=== PATIENT | male | born 1960 | race Caucasian/White ===

== ENCOUNTER 2018-09-08 10:16 | Day surgery (SDC) | payer BC, OTHER ==
[~2018-09-08 10:16] MED LIST: Lactated Ringers 1,000 ML IV SCH
[2018-09-08] MEDS ORDERED: Midazolam 1 MG/ML 2 ML SDV ONE (11:10)
[2018-09-08] MEDS ORDERED: Propofol 200 MG/20 ML SDV ONE ×2 (11:10→12:26)
[2018-09-08] MEDS ORDERED: fentaNYL 100 MCG/2 ML SDV ONE (11:10)
--- NOTE | 2018-09-08 13:32 | OR ---
PREOPERATIVE DIAGNOSIS: Abdominal pain. POSTOPERATIVE DIAGNOSIS: Abdominal pain. PROCEDURE PERFORMED: Colonoscopy with cecal biopsies. INDICATIONS: The patient is a 58-year-old male with history of intermittent abdominal pain, presents for colonoscopy for further evaluation. PROCEDURE IN DETAIL: This was done in the endoscopy suite. Sedation was given per Anesthesia. He was placed in left lateral position. First, a rectal exam was done and was normal. Scope was introduced into the rectum and slowly advanced to the sigmoid, descending, transverse, and ascending colon until the cecum was reached. The cecum was found to be very friable with bleeding with just touching it, so I did do a few random biopsies of the area to check for inflammatory changes and colitis. The scope was then slowly withdrawn looking at all mucosal surfaces on the way out. No mucosal abnormalities, lesions, or polyps were noted. Upon reaching the rectum, the patient had moderate internal and external hemorrhoids present. FINAL DIAGNOSES: 1. Cecal inflammation. 2. Moderate hemorrhoids. PLAN: We will call him when those results are available, and then regarding the hemorrhoids, we would recheck him in the office in a couple of weeks to discuss further options. BKD: 09/08/2018 12:44:45 MODL: 09/08/2018 13:17:41 /[id number]
== END 2018-09-08 13:45 | disposition home or self-care (01) ==
LOC: VM.SDS 10:16
PROVIDERS: ATTEND Surgery
DX: K52.9 Noninfective gastroenteritis and colitis, unspecified (principal); K64.4 Residual hemorrhoidal skin tags; K64.8 Other hemorrhoids; I10 Essential (primary) hypertension; F17.220 Nicotine dependence, chewing tobacco, uncomplicated; E78.5 Hyperlipidemia, unspecified; G47.00 Insomnia, unspecified; Z79.899 Other long term (current) drug therapy
CPT/HCPCS: J2250; J2704; J3010; J7120

== ENCOUNTER 2019-07-20 09:58 | Day surgery (SDC) | payer BC ==
[2019-07-20] MEDS ORDERED: Lactated Ringers 1,000 ML IV SCH (10:00)
[2019-07-20] MEDS ORDERED: fentaNYL 100 MCG/2 ML SDV ONE (11:03)
[2019-07-20] MEDS ORDERED: Propofol 200 MG/20 ML SDV ONE (11:03)
--- NOTE | 2019-07-20 18:14 | OR ---
PREOPERATIVE DIAGNOSIS: Epigastric pain. POSTOPERATIVE DIAGNOSIS: Epigastric pain. PROCEDURE PERFORMED: Esophagogastroduodenoscopy with antral biopsy. INDICATION: Mr. Mendez is a 59-year-old male with history of ongoing epigastric pain who presents for EGD at this time for further evaluation. PROCEDURE IN DETAIL: This was done in the endoscopy suite. Sedation was given per Anesthesia. Endoscope was inserted into the pharynx and esophagus was intubated and traversed into the stomach through the pylorus into the 1st and 2nd portion of the duodenum. The 1st and 2nd portions of duodenum were normal. The scope was slowly withdrawn. The patient had what appeared to be a diffuse gastritis present. Two antral biopsies were taken for this and for H. pylori. Scope was retroflexed. The patient had a moderate-sized hiatal hernia present. Scope was slowly withdrawn revealing no other pathology. FINAL DIAGNOSES: 1. Gastritis. 2. Moderate-sized hiatal hernia. BKD: 07/20/2019 11:39:59 MODL: 07/20/2019 18:07:28 /[id number]
== END 2019-07-20 12:50 | disposition home or self-care (01) ==
LOC: VM.SDS 09:58
PROVIDERS: ATTEND Surgery
DX: K29.70 Gastritis, unspecified, without bleeding (principal); K44.9 Diaphragmatic hernia without obstruction or gangrene; F41.9 Anxiety disorder, unspecified; Z79.899 Other long term (current) drug therapy
CPT/HCPCS: 43239; J2704; J3010; J7120

== ENCOUNTER 2023-02-22 19:11 | Observation (INO) | payer MEDICARE, MEDICAID ==
[2023-02-22] MEDS ORDERED: Acetaminophen 325 MG Tab PO PRN (19:21)
[2023-02-22] MEDS ORDERED: Sodium Chloride 0.9% 10 ML Syringe FLUSH PRN (19:27)
[2023-02-22 19:28] LABS: BASOPHILS PERCENT AUTO 0.4 % (0.2-1.2); EOSINOPHILS PERCENT AUTO 0.6 % (0.0-4.0); HEMATOCRIT 37.3 % (40.0-52.0); IMMATURE GRAN ABSOLUTE AUTO 0.01 x10^3/uL (0.00-0.07); LYMPHOCYTES ABSOLUTE AUTO 1.5 x10^3/uL (1.0-4.8); LYMPHOCYTES PERCENT AUTO 30.4 % (25.0-50.0); MEAN CORPUSCULAR HEMOGLOBIN 34.7 pg (26.0-32.0); MEAN CORPUSCULAR HGB CONC 34.9 g/dL (32.0-36.0); MEAN CORPUSCULAR VOLUME 99.5 fL (78.0-93.0); MONOCYTES ABSOLUTE AUTO 0.5 x10^3/uL (0.0-0.8); NEUTROPHILS ABSOLUTE AUTO 2.8 x10^3/uL (1.8-7.7); NEUTROPHILS PERCENT AUTO 57.4 % (50.0-80.0); PLATELET COUNT,PLT 97 x10^3/uL (130-400); RED BLOOD CELL COUNT 3.75 x10^6/uL (4.5-6.0); WHITE BLOOD CELL COUNT,WBC 4.8 x10^3/uL (4.0-10.0)
[2023-02-22 19:55] LABS: A/G RATIO 1.03; ALBUMIN 3.7 g/dL (3.4-5.0); BILIRUBIN TOTAL 1.2 mg/dL (0.2-1.0); CALCIUM 8.7 mg/dL (8.5-10.1); CREATININE 0.9 mg/dL (0.70-1.30); EST CRCL DRUG DOSING (CG) 93.41 mL/min; PROTEIN TOTAL,TP 7.3 g/dL (6.4-8.2)
[2023-02-22 19:58] LABS: ANION GAP 20.7 mmol/L (5-15)
[2023-02-22 19:59] LABS: POTASSIUM,K 2.7 mmol/L (3.5-5.1)
[2023-02-22] MEDS ORDERED: ClonazePAM 0.5 MG Tab PO PRN (21:01)
[2023-02-22] MEDS ORDERED: QUEtiapine 25 MG Tab PO SCH (21:04)
[2023-02-22] MEDS: NS with KCl 40mEq 1,000 ML IV SCH (21:10)
[2023-02-23] MEDS: NS with KCl 40mEq 1,000 ML IV SCH (04:49)
[2023-02-23] MEDS ORDERED: Magnesium Sulfate/Water 2 GM in Premix Bag 1 BAG IV ONE ×2 (05:04→09:08)
[2023-02-23] MEDS ORDERED: Potassium Chloride 10 MEQ Tab.ER PO SCH (08:00)
[2023-02-23 08:46] LABS: CALCIUM 8.6 mg/dL (8.5-10.1); CREATININE 0.7 mg/dL (0.70-1.30); EST CRCL DRUG DOSING (CG) 120.1 mL/min; MAGNESIUM 1.5 mg/dL (1.8-2.4); POTASSIUM,K 3.7 mmol/L (3.5-5.1)
[2023-02-23 08:47] LABS: ANION GAP 17.7 mmol/L (5-15)
[2023-02-23] MEDS ORDERED: Folic Acid 1 MG Tab PO SCH (09:00)
[2023-02-23] MEDS ORDERED: Lisinopril 20 MG Tab PO SCH (09:00)
[2023-02-23] MEDS ORDERED: Ipratropium 0.06% Nasal Spray 15 ML Bottle NASBOTH SCH (09:00)
[2023-02-23] MEDS ORDERED: Famotidine 20 MG Tab PO SCH (09:00)
[2023-02-23] MEDS ORDERED: MAGNESIUM CHLORIDE 71.5 MG PO SCH (09:00)
== END 2023-02-23 12:30 | disposition home or self-care (01) ==
LOC: VM.MS 19:11
PROVIDERS: ADMIT Physician Assistant Medical; ATTEND Physician Assistant Medical
DX: E83.42 Hypomagnesemia (principal); F41.9 Anxiety disorder, unspecified; G47.00 Insomnia, unspecified; M54.9 Dorsalgia, unspecified; G89.29 Other chronic pain; I10 Essential (primary) hypertension; F17.290 Nicotine dependence, other tobacco product, uncomplicated; Z79.899 Other long term (current) drug therapy; Z98.890 Other specified postprocedural states
CPT/HCPCS: 36415; 80048; 80053; 83735; 84484; 85025; 93010; 96365; 96366; 96367; 96368; 99223; 99238; A9270-GY; G0378; G0379; J3475; J3480

== ENCOUNTER 2023-12-19 23:02 | Emergency (ER) | payer MEDICARE, OTHER ==
[2023-12-19 23:34] LABS: BASOPHILS PERCENT AUTO 0.3 % (0.2-1.2); EOSINOPHILS PERCENT AUTO 0.1 % (0.0-4.0); HEMATOCRIT 38.1 % (40.0-52.0); HEMOGLOBIN 13.4 g/dL (14.0-18.0); IMMATURE GRAN ABSOLUTE AUTO 0.01 x10^3/uL (0.00-0.07); LYMPHOCYTES ABSOLUTE AUTO 1.6 x10^3/uL (1.0-4.8); LYMPHOCYTES PERCENT AUTO 19.5 % (25.0-50.0); MEAN CORPUSCULAR HEMOGLOBIN 34.9 pg (26.0-32.0); MEAN CORPUSCULAR HGB CONC 35.2 g/dL (32.0-36.0); MEAN CORPUSCULAR VOLUME 99.2 fL (78.0-93.0); MONOCYTES ABSOLUTE AUTO 0.9 x10^3/uL (0.0-0.8); MONOCYTES PERCENT AUTO 11.8 % (2.0-11.0); NEUTROPHILS ABSOLUTE AUTO 5.4 x10^3/uL (1.8-7.7); NEUTROPHILS PERCENT AUTO 68.2 % (50.0-80.0); PLATELET COUNT,PLT 143 x10^3/uL (130-400); RED BLOOD CELL COUNT 3.84 x10^6/uL (4.5-6.0); WHITE BLOOD CELL COUNT,WBC 7.9 x10^3/uL (4.0-10.0)
[2023-12-19 23:49] LABS: PROTHROMBIN TIME 10.5 SEC (8.9-11.5); PTT,PARTIAL THROMBOPLSTIN TIME 26.3 SEC (21.9-33.8)
[2023-12-20 00:02] LABS: A/G RATIO 0.84; ALBUMIN 3.6 g/dL (3.4-5.0); ANION GAP 20.9 mmol/L (5-15); BILIRUBIN TOTAL 1.1 mg/dL (0.2-1.0); C-REACTIVE PROTEIN 2.92 mg/dL (<=0.50); CALCIUM 9.7 mg/dL (8.5-10.1); CREATININE 0.8 mg/dL (0.70-1.30); EST CRCL DRUG DOSING (CG) 105.08 mL/min; PROTEIN TOTAL,TP 7.9 g/dL (6.4-8.2); TSH ULTRASENSITIVE 1.476 uIU/mL (0.358-3.74)
[2023-12-20 00:03] LABS: POTASSIUM,K 2.9 mmol/L (3.5-5.1)
[2023-12-23 05:07] LABS: ANA BY ELISA, IGG W/RFLX IFA None Detected (None Detected)
== END 2023-12-20 00:20 | disposition home or self-care (01) ==
LOC: VM.ED 23:02
DX: I73.00 Raynaud's syndrome without gangrene (principal); E87.6 Hypokalemia; I10 Essential (primary) hypertension; Z79.899 Other long term (current) drug therapy
CPT/HCPCS: 36415; 80053; 84443; 85025; 85610; 85730; 86038; 86140; 99284

== ENCOUNTER 2024-03-13 21:02 | Emergency (ER) | payer MEDICARE, OTHER | END 2024-03-13 21:44 | disposition home or self-care (01) | LOC: VM.ED 21:02 | DX: I10 Essential (primary) hypertension (principal); F41.9 Anxiety disorder, unspecified; F17.210 Nicotine dependence, cigarettes, uncomplicated; Z79.899 Other long term (current) drug therapy | CPT/HCPCS: 99283 ==